=== PATIENT | male | born 1945 | race Caucasian/White ===

== ENCOUNTER → 2016-05-06 | Outpatient (CLI) | payer OTHER ==
--- NOTE | 2016-05-06 14:41 | DIAGNOSTIC IMAGING REPORT ---
CT OF THE TEMPORAL BONES WITHOUT CONTRAST CT DOSE: 498.16 mGycm CLINICAL HISTORY: Otorrhea of left ear. Previous left mastoidectomy with patent abnormality behind the left tympanic membrane. TECHNIQUE: Axial images of the temporal bones were obtained without IV contrast. Coronal reformats were viewed. COMPARISON STUDY: Sinus CT March 14, 2010. FINDINGS: Several opacified right mastoid air cells are present. Aeration has improved since study of March 14, 2019. The right ossicles are intact. The right scutum is intact. There is no bony erosion within the right mastoid air cells. There are postsurgical findings consistent with a left sided mastoidectomy. Soft tissue/fluid was shown in the mastoidectomy site on exam of March 14, 2010 is no longer visualized. Bony erosion with soft tissue density within the left middle ear extending into the mastoids is noted. No new sites of bony erosion are evident. Portions of the ossicles are eroded although the appearance is similar in exam to March 14, 2010. The adjacent soft tissues are unremarkable. There is mild mucosal thickening of the sinuses. IMPRESSION: 1. Status post left mastoidectomy. Soft tissue/fluid within the mastoidectomy site on exam of March 14, 2010 is no longer visualized with improved aeration. Bony erosion with soft tissue density within the left middle ear extending into the mastoids with involvement of the ossicles is similar to exam of March 14, 2010. Residual/recurrent cholesteatoma would be difficult to exclude but no interval bony destruction is present since that exam. 2. A few opacified right mastoid air cells. Interval improvement in aeration of the right mastoid air cells since prior exam. Electronically signed by: Scott Tapia M.D. 05/06/2016 2:39 PM Dictated Date/Time: 05/06/2016 12:00 PM
== END | disposition home or self-care (01) ==
LOC: C.CTS 10:55
PROVIDERS: ATTEND Surgery
DX: H92.12 Otorrhea, left ear (principal); Z98.890 Other specified postprocedural states

== ENCOUNTER → 2016-08-26 | Outpatient (CLI) | payer OTHER ==
[2016-08-26 13:03] LABS: ALT/SGPT 22 U/L (12-78); AST/SGOT 16 U/L (15-37); BLOOD UREA NITROGEN 26 mg/dl (7-18); BUN/CREATININE RATIO 18.6 (10-20); CARBON DIOXIDE 27 mmol/L (21-32); CHLORIDE 105 mmol/L (98-107); CHOLESTEROL 193 mg/dl (0-200); GLUCOSE 147 mg/dl (70-99); POTASSIUM 4.3 mmol/L (3.5-5.1); SODIUM 138 mmol/L (136-145); TRIGLYCERIDES 194 mg/dl (0-150); VERY LOW DENSITY LIPOPROT CALC 39 mg/dl
[2016-08-26 13:06] LABS: CHOLESTEROL/HDL RATIO 4.2; HDL CHOLESTEROL 46 mg/dl; LDL CHOLESTEROL CALCULATED 108 mg/dl
[2016-08-26 13:35] LABS: CALCIUM 9.3 mg/dl (8.5-10.1)
[2016-08-26 14:55] LABS: ESTIMATED AVERAGE GLUCOSE 120 mg/dl; HA1C FLAG Normal (Normal)
== END | disposition home or self-care (01) ==
LOC: C.LABPVFM 09:11
PROVIDERS: ATTEND Family Medicine
DX: H92.12 Otorrhea, left ear (principal); Z13.1 Encounter for screening for diabetes mellitus; R73.09 Other abnormal glucose

== ENCOUNTER → 2017-04-14 | Outpatient (CLI) | payer OTHER ==
[2017-04-14 14:13] LABS: BLOOD UREA NITROGEN 25 mg/dl (7-18); BUN/CREATININE RATIO 19.1 (10-20); CARBON DIOXIDE 29 mmol/L (21-32); CHLORIDE 101 mmol/L (98-107); CREATININE 1.32 mg/dl (0.60-1.40); GLUCOSE 100 mg/dl (70-99); PHOSPHORUS 2.3 mg/dl (2.5-4.9); POTASSIUM 3.9 mmol/L (3.5-5.1); SODIUM 132 mmol/L (136-145)
== END | disposition home or self-care (01) ==
LOC: C.LABPVFM 09:44
PROVIDERS: ATTEND Family Medicine
DX: R79.9 Abnormal finding of blood chemistry, unspecified (principal)

== ENCOUNTER → 2017-05-07 | Outpatient (CLI) | payer OTHER ==
[2017-05-07 13:49] LABS: BLOOD UREA NITROGEN 33 mg/dl (7-18); CALCIUM 9.4 mg/dl (8.5-10.1); CARBON DIOXIDE 30 mmol/L (21-32); CREATININE 1.55 mg/dl (0.60-1.40); GLUCOSE 178 mg/dl (70-99); PHOSPHORUS 3.1 mg/dl (2.5-4.9); SODIUM 134 mmol/L (136-145)
== END | disposition home or self-care (01) ==
LOC: C.LABPVFM 09:33
PROVIDERS: ATTEND Family Medicine
DX: R79.9 Abnormal finding of blood chemistry, unspecified (principal)